=== PATIENT | female | born 1960 | race Caucasian/White ===

== ENCOUNTER 2021-09-01 07:12 | Day surgery (SDC) | payer BC ==
[~2021-09-01] VITALS: Ht 157.5 cm; Wt 68.0 kg
[~2021-09-01 07:12] MED LIST: DORZOLAMIDE-TIM10 ML OPTH; MULTI VITAMIN1 EACH PO; OSTERA TABLET1 EACH PO
--- NOTE | 2021-09-01 08:05 | NUR ---
PATIENT LEFT DAYSURGERY TO IMAGING BY WHEELCHAIR.
--- NOTE | 2021-09-01 10:32 | NUR ---
09/01/21 1032 Patria Barahona 1025-PATIENT ARRIVED TO PACU ON 6L MASK RR EVEN. SR, IVF INFUSING. PATIENT NONAROUSABLE. LEFT BREAST CDI. 1030-PATIENT AROUSING TO VERBAL STIMULI RUBBING NOSE ORIENTED TO PACU REMAINS VERY DROWSY. DENIES PAIN OR NAUSEA. DOZES BACK TO SLEEP. 6L MASK RR EVEN 100%
[2021-09-01] MEDS ORDERED: IBUPROFEN600 MG PO (10:46)
[2021-09-01] MEDS ORDERED: OXYCODON-ACETA1 EAC2 PO (10:46)
[2021-09-01] MEDS ORDERED: ACETAMINOPHEN500 MG PO (10:47)
--- NOTE | 2021-09-01 11:13 | NUR ---
1100: PT BACK TO DS TX RM FROM PACU AWAKE AND ALERT. PT RATES PAIN 2/10 WHEN ASKED AND TOLERABLE. PT DENIES NAUSEA AND ICED WATER IS PROVIDED. PT SPOUSE AT BEDSIDE ON ARRIVAL. DC CRITERIA EXPLAINED, CALL LIGHT WITHIN REACH.
--- NOTE | 2021-09-01 11:45 | NUR ---
PT ALERT, ORIENTED AND SUPPORTED BY HER BETTYE. BOTH FRIENDLY, BUT SOME- WHAT ANXIOUS. HAD GOOD VISIT, DEBRIEFED AND PRAYED WITH BOTH. SPENT TIME WITH BOTH GIVING ENCOURAGEMENT. WILL FOLLOW
--- NOTE | 2021-09-01 12:13 | NUR ---
PT RESTING IN BED WITH EYES CLOSED, RESP EVEN AND UNLABORED. ASSESSMENT DEFERRED AT THIS TIME PER CLINICAL JUDGEMENT, WILL PLAN TO ASSESS ONCE AWAKE. CALL LIGHT WITHIN REACH.
--- NOTE | 2021-09-01 12:25 | NUR ---
PT UP TO BATHROOM WITH AMBIKA JEAN. VSS.
--- NOTE | 2021-09-01 12:36 | NUR ---
PT SPOUSE BACK IN ROOM AT THIS TIME. PT AWAKE AND HAS URGE TO VOID, DOMINGA, RN AND THIS RN ASSIST PT TO SIDE OF BED PRIOR TO STANDING. PT STATES "I DON'T FEEL DIZZY, JUST AIRY FROM ANESTHESIA." PT AMBULATES WITH STEADY GAIT AND IS ABLE TO VOID 600 MLS YELLOW URINE. PT PROVIDED JELLO AND SPOUSE GIVEN APPLE JUICE. CALL LIGHT WITHIN REACH.
--- NOTE | 2021-09-01 13:40 | NUR ---
PATIENT REPORTED FEELING READY TO DISCHARGE HOME. PATIENT STATES PAIN IS 2/10 ON PAIN SCALE, DESCRIBES A BURNING SENSATION. ADMINISTERED MOTRIN PO. REMOVED SALINE LOCK. PATIENT NOW DRESSING SELF. PROVIDED EDUCATION WITH PAIN CONTROL AND DISCUSSED TREATMENT OF PREVENTING CONSTIPATION WHEN TAKING NARCOTICS.
--- NOTE | 2021-09-01 13:50 | NUR ---
PROVIDED DISCHARGE INSTRUCTION TO PATIENT AND IN ROOM, ANSWERED QUESTIONS AND CONCERNS. PROVIDED WHEELCHAIR RIDE OUT TO CAR. PATIENT TRANSFERED WELL INTO VEHICLE. DRESSING AT LEFT BREAST BIOPSY SITE C/D/I.
--- NOTE | 2021-09-03 13:40 | OR ---
[facility] [address] [place], [place] [address] Signed DATE OF OPERATION: 09/01/2021 SURGEON: Talisha Zaldivar MD PREOPERATIVE DIAGNOSIS: Left upper outer quadrant infiltrating ductal carcinoma. POSTOPERATIVE DIAGNOSES: 1. Left upper outer quadrant infiltrating ductal carcinoma. 2. [place] lymph node x3 negative on frozen pathology. PROCEDURES: 1. Injection of methylene blue dye for sentinel lymph node identification. 2. Left deep axillary lymph node biopsy x3. 3. Left partial mastectomy. ANESTHESIA: General LMA, Doug Schroeder CRNA INDICATIONS: This 61-year-old white woman is a patient of Rufus Hinkle and referred for newly diagnosed left breast cancer in the upper outer aspect of the breast. It was confirmed to be infiltrating ductal carcinoma. The patient had not felt a breast mass in advance evaluation and treatment. A mammogram in July 2021 confirmed the suspicious finding and left breast ultrasound was also performed, confirming a hypoechoic mass and irregular borders 13 mm in maximum size in the axilla, at least two pathologic appearing lymph nodes measuring 19 mm. Core biopsy was performed July 30, 2021 confirming infiltrating ductal breast carcinoma overall grade 1 without sign of lymphovascular invasion as well as some in situ component considered low-grade DCIS without necrosis. There were micro calcifications. Family history includes breast cancer in a paternal grandmother. She has been postmenopausal for three years. Clinical examination shows no suspicious axillary adenopathy. In the upper outer aspect on the left side, an area of thickening was noted on clinical examination, which may have represented hematoma from biopsy and on that basis, uncertainty as to the palpable nature of the lesion. After consideration of her options of management, she wishes to pursue with a breast conservation approach to include partial mastectomy, breast radiation therapy and sentinel lymph node biopsies to assess for metastatic disease. Under the consideration of her particulars, specifically the suspicious lymph nodes on Electronically Signed By: TALISHA ZALDIVAR MD 09/03/21 1340 PATIENT NAME: TIM MANZO OPERATIVE REPORT DATE OF : 64 REPORT #: [id number] PHYSICIAN: TALISHA ZALDIVAR MD PCP: RUFUS HINKLE PAC REPORT IS CONFIDENTIAL AND NOT TO BE RELEASED WITHOUT AUTHORIZATION [facility] [address] [place], [place] [address] Signed ultrasound of the axilla, I have recommended sentinel lymph node identification by methylene blue dye alone as there is relatively high probability of axillary dissection based on clinical findings with open incision for sentinel lymph node biopsies anyway. Additionally as availability for localization was not immediate, I have scheduled for needle localization of the primary tumor to assure complete excision. She and her understand the risk of bleeding, infection, cosmetic deformity, certain recommendation of radiation therapy and possible recommendation for systemic chemotherapy depending on the pathologic findings. Understand this, they wished to proceed. FINDINGS: Upon presentation to the radiology department, the lesion was still palpable despite biopsy having been a few weeks ago. On that basis, needle localization was deemed unnecessary. The area was marked by the radiologist for my convenience and clinical examination preoperatively did confirm the thickened area to have persisted and thus not represent persistent hematoma and therefore high likelihood of good and complete excision of the mass. There remained no clinically palpable axillary lymph nodes. Methylene blue dye injection did arborize locally quite a bit; 2 mL were used. Within the axilla, obvious uptake to lymphatics was noted and three relatively large sentinel lymph nodes were excised. Frozen pathology confirmed no evidence of metastatic disease and on that basis, additional dissection was not undertaken. Final pathology is of course pending. The remaining axilla was clinically negative as regards to metastatic disease. The tumor itself was dense and a wide resection was undertaken so as to maintain a clinically and pathologically negative margin. Inferior and medial in the excision site was fibrous tissue consistent with normal breast tissue; if that area proves to be a strongly positive margin, then re-excision will involve by definition a much larger resection than might have been anticipated. Final pathology on the breast is pending. DESCRIPTION OF PROCEDURE: The patient was brought to the operating room, given a general LMA type anesthetic. She was noted to have a somewhat difficult airway. The device was placed successfully without problem. Preoperative antibiotic Ancef was given. Sequential compression device stockings were used and heparin subcutaneously administered. 2 mL of methylene blue dye was injected in the subepithelial space in the upper outer aspect of the left periareolar area. Arborization within lymphatics was noted quite immediately. The palpable lesion was also previously marked by the radiologist and was readily discernible. There is no palpable axillary adenopathy. Electronically Signed By: TALISHA ZALDIVAR MD 09/03/21 1340 PATIENT NAME: TIM MANZO OPERATIVE REPORT DATE OF : 64 REPORT #: [id number] PHYSICIAN: TALISHA ZALDIVAR MD PCP: RUFUS HINKLE PAC REPORT IS CONFIDENTIAL AND NOT TO BE RELEASED WITHOUT AUTHORIZATION [address] [address] Signed The upper torso and arm were prepared with a spray Betadine solution and draped sterilely. A transverse incision was made in the natural skin crease and dissection carried through the subcutaneous tissue. Using blunt dissection with a tonsil clamp ultimately, several deep blue lymphatic channels were identified, which were followed to 3 sentinel lymph nodes, all of them somewhat larger than usual and probably corresponding to the preoperative ultrasound lymph node findings. These were excised and passed for pathology, marked with a suture. Additional dissection showed no obvious additional blue lymph nodes. The remaining axilla was palpably normal. A laparotomy pad was packed into the depths of the wound and attention turned towards the primary tumor. The tumor was easily identified and an incision was made directly over it. Dissection was carried through the dermis with electrocautery. Superior and inferior flaps were developed so as to widely excise the tumor and its surrounding inflammatory process. Wide resection was taken and deep dissection undertaken with a clinically negative margin. Specimen was marked prior to explantation from the wound with a superior and lateral suture. The specimen was passed for permanent pathology. Examination within the parenchyma of the breast showed no sign of residual tumor; inferiorly, fibrous tissue from the excision could be identified, which was considered normal breast tissue and not malignant. Irrigation was undertaken with saline solution and hemostasis assured with electrocautery. The breast wound was closed with interrupted 2-0 Vicryl and running subcuticular 3-0 Vicryl for the skin. By this point, the frozen pathology from Dr. Coleman returned showing three sentinel lymph nodes negative for metastatic disease on frozen pathology. Examination of the axillary wound showed no sign of bleeding or other problems. It was closed with interrupted 2-0 Vicryl in deep layer and running subcuticular 3-0 Vicryl for the skin. Steri-Strips were applied to both incisions and a medium size Acticoat dressing used to cover both of them. She was ultimately extubated and transferred to recovery room in good condition having suffered no complications. Sponge, needle, and instrument counts were reported as correct x3. Talisha Zaldivar MD JM/MODL /[id number] Electronically Signed By: TALISHA ZALDIVAR MD 09/03/21 1340 PATIENT NAME: TIM MANZO OPERATIVE REPORT DATE OF : 64 REPORT #: [id number] PHYSICIAN: TALISHA ZALDIVAR MD PCP: RUFUS HINKLE PAC REPORT IS CONFIDENTIAL AND NOT TO BE RELEASED WITHOUT AUTHORIZATION [address] [address] Signed cc: MD Dr. Rufus Castañeda Copies: ZACKARY STANLEY MD ~ Electronically Signed By: TALISHA ZALDIVAR MD 09/03/21 1340 PATIENT NAME: TIM MANZO OPERATIVE REPORT DATE OF : 64 REPORT #: [id number] PHYSICIAN: TALISHA ZALDIVAR MD PCP: RUFUS HINKLE PAC REPORT IS CONFIDENTIAL AND NOT TO BE RELEASED WITHOUT AUTHORIZATION
--- NOTE | 2021-09-07 13:35 | PATH ---
[facility] [address] [facility] [place] [address] Signed SPECIMEN(S): A SENTINEL LYMPH NODE OF LEFT BREAST X3 SPECIMEN(S): B LEFT UPPER OUTER BREAST SPECIMEN SOURCE: A. SENTINEL LYMPH NODE OF LEFT BREAST X3 B. LEFT UPPER OUTER BREAST [id number] A CLINICAL HISTORY: A. Infiltrating ductal left breast carcinoma. B. Left upper outer breast cancer. Short stitch = superior; long stitch = lateral. Specimen Time to Fixation- 09/01/2021 10:29:00 AM FROZEN SECTION DIAGNOSIS: A. SLN marked by suture x3: - No evidence of malignancy in technology sales representative sections frozen (of each sentinel lymph node). (Dr. Coleman, 10:06 AM, 09/01/2021) Frozen section diagnosis called to Dr. Sanchez at 10:06 AM. FB (under the direct supervision of a pathologist) The Gross Description was prepared using a voice recognition system. The report was reviewed for accuracy; however, sound-alike word errors, addition and/or deletions may occur. If there is any question about this report, please contact Client Services. FINAL PATHOLOGIC DIAGNOSIS: A. [place] lymph nodes, left axilla, excisional biopsy: - No evidence of malignancy in three lymph nodes (0/3). B. Breast, left, upper outer quadrant, lumpectomy: - Invasive ductal carcinoma with the following features: - Tumor site: Upper outer quadrant. - Histologic type: Invasive carcinoma of no special type (ductal). - Histologic grade (Daniela histologic score): - Glandular (acinar)/tubular differentiation: Score 2. - Nuclear pleomorphism: Score 2. - Mitotic rate: Score 1. - Overall grade: I/III (total score 5 of 9). - Tumor size: 19 x 16 x 15 mm. - Ductal carcinoma in situ (DCIS): Present, negative for extensive intraductal component (EIC). - Architectural patterns: Solid and cribriform with comedo PATIENT NAME: GÉNESIS PETERSON PATHOLOGY DATE OF : 64 REPORT #: [id number] PHYSICIAN: IVIS STORM PCP: RUFUS HINKLE PAC REPORT IS CONFIDENTIAL AND NOT TO BE RELEASED WITHOUT AUTHORIZATION [facility] [address] [place], [place] [address] Signed necrosis. - Nuclear grade: Grade 2 (intermediate). - Necrosis: Present, central (expansive "comedo" necrosis). - Lobular carcinoma in situ (LCIS): Present. - Lymphovascular invasion: Not identified. - Microcalcifications: Present in invasive carcinoma, DCIS, and non-neoplastic tissue. - Margin status for invasive carcinoma: All margins negative for invasive carcinoma. - Distance from invasive carcinoma to closest margins: 6 mm (superior margin) and 7 mm (anterior margin). - All other margins: Greater than 10 mm. - Margin status for DCIS: All margins negative for DCIS. - Distance of DCIS from closest margin: 2 mm (posterior margin). - All other margins: Greater than 5 mm. - Regional lymph nodes: All regional lymph nodes negative for tumor. - Total number of lymph nodes examined: 3. - Number of sentinel nodes examined: 3. - Additional pathologic findings: Columnar cell change, fibrocystic changes. - Breast biomarker studies: Please refer to previously performed testing ([id number], 07/30/2021), interpreted as ER positive, MD positive, and HER2 negative for amplification by FISH. - Pathologic stage classification (pTNM, AJCC 8th edition): pT1c (sn)pN0. COMMENT: As part of [employer], this case was reviewed by another member of our pathology staff. NAL:cml:C1NR MICROSCOPIC EXAMINATION: Histologic sections of all submitted blocks are examined by light microscopy. These findings, together with the gross examination, support the pathologic diagnosis. Elementary Spanish Teacher sections of the sentinel lymph nodes (A1, A3, A4) were examined with pancytokeratin immunohistochemical stains (with appropriately staining controls) and confirm the absence of tumor cells. E-cadherin immunohistochemical stains (with appropriately staining controls B1, PATIENT NAME: SEGUN PETERSONZuhair ANDUJAR PATHOLOGY DATE OF : 64 REPORT #: [id number] PHYSICIAN: IVIS STORM PCP: RUFUS IHNKLE PAC REPORT IS CONFIDENTIAL AND NOT TO BE RELEASED WITHOUT AUTHORIZATION [address] [address] Signed B10) confirm the presence of lobular neoplasia demonstrating loss of membranous e-cadherin staining. A [facility] immunohistochemical stain (with appropriately staining controls) confirm the absence of invasive carcinoma within that one stained section. GROSS DESCRIPTION: Two specimens are received in two containers, labeled "Génesis Peterson." A. The specimen, labeled "Génesis Peterson," and designated on the requisition "SLN's marked by suture x3," is received fresh for frozen section diagnosis and consists of two pieces of fat, 9.0 x 4.1 x 1.5 cm in aggregate. Three possible SLN's are identified, marked by sutures. SLN #1 = 2.2 x 1.8 x 1.3 cm, quadrisected. SLN #2 = 1.5 x 1.5 x 0.9 cm, fragmented, trisected. SLN #3 = 0.7 x 0.5 x 0.6 cm, bisected. A portion of the lymph nodes are submitted for frozen section resubmitted as received. The remaining lymph nodes are submitted for histologic examination. No additional lymph nodes were identified in the remainder of the fibroadipose tissue. Elementary Spanish Teacher sections are submitted in seven cassettes. Cassette summary: (A1-A2) SLN #1, frozen section (A3) SLN #2, frozen section (A4) SLN #3, frozen section (A5) SLN #1, remainder (A6) SLN #2, remainder (A7) SLN #3, remainder. B. The specimen, labeled "Génesis Peterson," and designated on the requisition "left upper outer breast cancer short stitch = superior long stitch = lateral," is received in formalin and consists of a 56 gram oriented portion of yellow-acosta fibroadipose tissue that is 7.4 x 5.5 x 4.9 cm. A short suture is present and identifies the superior margin; a long suture identifies the lateral margin. The specimen is inked as follows: superior - blue; inferior - green; medial - red; lateral - orange; anterior - yellow; and posterior - black. The specimen is serially sectioned from medial to lateral into 14 slices revealing a 1.9 x 1.6 x 1.5 cm pink-white firm, ill-defined mass present in slices 5-8. The mass is 0.6 cm from the anterior soft tissue margin, 1.6 cm from the posterior soft tissue margin, 0.7 cm from the superior soft tissue margin, 1.3 cm from the inferior soft tissue margin, 2.3 cm from the medial soft tissue margin, and 3.7 cm from the lateral soft tissue margin. PATIENT NAME: GÉNESIS PETERSON PATHOLOGY DATE OF : 64 REPORT #: [id number] PHYSICIAN: IVIS STORM PCP: RUFUS HINKLE PAC REPORT IS CONFIDENTIAL AND NOT TO BE RELEASED WITHOUT AUTHORIZATION [facility] [address] [place], [place] [address] Signed Approximately 95% of the remaining specimen is a yellow-acosta greasy adipose tissue and 5% is a white-acosta rubbery fibrous tissue. Elementary Spanish Teacher sections are submitted in nine cassettes. Cassette summary: (B1-B3) slice six with mass (slice six is entirely submitted) (B4-B5) mass to closest anterior and superior soft tissue resection margins, perpendicular, from slices seven and eight (B6) fibroadipose tissue medial to mass, slice three (B7) fibroadipose tissue lateral to mass, slice 10 (B8) medial soft tissue resection margin, perpendicular, slice one, technology sales representative sections (B9) lateral soft tissue resection margin, perpendicular, slice 14, technology sales representative sections. Additional tissue submitted in cassettes B10-B12, per Dr. Coleman's request. FB (B10) Superior and posterior soft tissue resection margins from slices four and five (B11) Superior and posterior soft tissue resection margins from slice seven (B12) Superior and posterior soft tissue resection margins from slice eight and nine. Cold ischemia time: 37 minutes Approximate Formalin time: 12-24 hours. PERFORMING LABORATORY: The technical component was performed by [facility], [address] [place] [id number] ([employer] Software: Tiffanie Erickson MD; CLIA# [id number]). Frozen section performed at [facility], [address] [place], [place] [address] (CLIA# [id number]). Professional interpretation was performed by [facility], [facility], [address] [address] (CLIA# [id number]). Diagnostician: Marissa Coleman MD Pathologist Electronically Signed 09/07/2021 Copies: ~ PATIENT NAME: GÉNESIS PETERSON PATHOLOGY DATE OF : 64 REPORT #: [id number] PHYSICIAN: IVIS PATHOLOGY PCP: RUFUS HINKLE PAC REPORT IS CONFIDENTIAL AND NOT TO BE RELEASED WITHOUT AUTHORIZATION
== END 2021-09-01 13:50 | disposition home or self-care (01) ==
LOC: DS 07:12 → EDSTATUS 08:00 → US 08:00 → DS 13:50
PROVIDERS: ATTEND Surgery
PROC: 07B60ZX Excision of Left Axillary Lymphatic, Open Approach, Diagnostic (ICD-10-PCS; principal; 2021-09-01 09:00)
DX: C50.412 Malignant neoplasm of upper-outer quadrant of left female breast (principal); Z78.0 Asymptomatic menopausal state; Z88.5 Allergy status to narcotic agent
CPT/HCPCS: 00404; 76642; A9270; J0131; J0690; J1100; J1644; J1885; J2001; J2405; J2704; J3010; J7121; Q9968

== ENCOUNTER 2024-01-02 07:27 | Day surgery (SDC) | payer BC ==
[~2024-01-02] VITALS: Ht 157.5 cm; Wt 64.5 kg
[~2024-01-02 07:27] MED LIST changes: +ACETAMINOPHEN500 MG PO; +ADULT ASPIRIN R81 MG PO; +ANASTROZOLE1 MG PO; +DRAMAMINE25 M1 PO; +IBLOOD GLUCOSE TEST STRIP 1 EA TEST VI PRN; +IBUPROFEN600 MG PO; +LACTATED RINGER'S 1,000 ML IV SCH; +LIDOCAINE HCL 1% 5 ML SDV INJ ONE; +MIDAZOLAM HCL 5 MG/5 ML VIAL IV PRN; +OXYCODON-ACETA1 EAC2 PO; +fentaNYL citrate 100 MCG/2 ML VIAL IV PRN
[2024-01-02 07:45] VITALS: BP 147/82
[2024-01-02] MEDS ORDERED: fentaNYL citrate 100 MCG/2 ML VIAL ONE (08:28)
[2024-01-02] MEDS ORDERED: MIDAZOLAM HCL 5 MG/5 ML VIAL ONE (08:28)
--- NOTE | 2024-01-02 09:16 | NUR ---
01/02/24 0916 Delaney Allen 0912-PT TO PACU IN LL POSITION. EYES CLOSED. RESPONDS TO VERBAL STIMULI, DENIES PAIN AND REMAINS DROWSY. PT ASKING QUESTIONS ABOUT PROCEDURE. BREATHING EASY AND UNLABORED. SPO2 >95% ON 3 L O2 VIA NC. PT ENCOURAGED TO PASS GAS.
[2024-01-02 10:32] VITALS: BP 126/76
--- NOTE | 2024-01-02 19:29 | OR ---
[facility] [address] [place], [place] [address] Signed DATE OF OPERATION: 01/02/2024 SURGEON: Talisha Zaldivar MD PREOPERATIVE DIAGNOSIS: Colon screening. POSTOPERATIVE DIAGNOSIS: Polyps x2, sigmoid and rectum. PROCEDURE: Total colonoscopy to cecum with cold morcellation polypectomy x2. ANESTHESIA: Intravenous sedation, fentanyl 100 mcg and Versed 5 mg. INDICATIONS FOR THE PROCEDURE: This 63-year-old white woman is a patient of KATIA Cruz. She last underwent colonoscopy in 2012, which was negative. She has no family history of colon cancer and no symptoms of bleeding, diarrhea, or constipation. She does have history of breast cancer, having undergone treatment by [place] in 2021 and remains well in that regard. She is admitted at this time to undergo screening colonoscopy. She understands the risk of bleeding, infection, and perforation. FINDINGS: The prep was good. Complete colonoscopy was undertaken. The cecum without question. She had two small polyps, one in the sigmoid and the other in the rectum. Both were excised with cold morcellation technique. DESCRIPTION OF PROCEDURE: The patient was brought to the endoscopy suite and placed in lateral decubitus position given intravenous sedation to the point of slurred speech and nystagmus with full cardiopulmonary monitoring. Digital rectal examination was normal. An Olympus video colonoscope was passed into the rectum and manipulated throughout the colon noting a small polyp of the sigmoid, this was excised and passed for Pathology. The scope was then advanced beyond this ultimately to the cecum. The ileocecal valve and appendiceal orifice were normal. Scope was carefully withdrawn, examination throughout showed no sign of abnormality until the sigmoid where the previous polypectomy site was ascertained. Further withdrawal showed a small polyp of the Electronically Signed By: TALISHA ZALDIVAR MD 01/02/24 1929 PATIENT NAME: TIM MANZO OPERATIVE REPORT DATE OF : 64 REPORT #: [id number] PHYSICIAN: TALISHA ZALDIVAR MD PCP: RUFUS HINKLE PAC REPORT IS CONFIDENTIAL AND NOT TO BE RELEASED WITHOUT AUTHORIZATION [facility] [address] [place], [place] [address] Signed rectum, this was excised with cold morcellation technique as well. Retroflexed view was normal. Scope was removed. The patient was taken to the recovery room in good condition. CONCLUDING DIAGNOSIS: Polyps x2. PLAN: Recommend repeat colonoscopy in 3 years or sooner if symptoms should occur. She will return to the ongoing care of KATIA Cruz. MD TRACI Díaz/NATASHA /[id number] cc: Rufus Hinkle PA-C Copies: ~ Electronically Signed By: TALISHA ZALDIVAR MD 01/02/24 1929 PATIENT NAME: TIM MANZO OPERATIVE REPORT DATE OF : 64 REPORT #: [id number] PHYSICIAN: TALISHA ZALDIVAR MD PCP: RUFUS HINKLE PAC REPORT IS CONFIDENTIAL AND NOT TO BE RELEASED WITHOUT AUTHORIZATION
--- NOTE | 2024-01-05 14:26 | PATH ---
[facility] [address] [facility] [place], [place] [address] Signed SPECIMEN(S): A SIGMOID POLYP SPECIMEN(S): B RECTAL POLYP SPECIMEN SOURCE: A. SIGMOID POLYP B. RECTAL POLYP CLINICAL HISTORY: Screening. FINAL PATHOLOGIC DIAGNOSIS: A. Colon, sigmoid, polyp, biopsy: - Multiple fragments of tubular adenoma. B. Rectum, polyp,, biopsy: - Tubular adenoma. COMMENT: There is no evidence of high grade dysplasia or malignancy. TWK MICROSCOPIC EXAMINATION: Histologic sections of all submitted blocks are examined by light microscopy. These findings, together with the gross examination, support the pathologic diagnosis. GROSS DESCRIPTION: A. The specimen, labeled and designated "Peterson, D, sigmoid polyp," is received in formalin and consists of two acosta soft tissue fragments, ranging from 0.3-0.5 cm. Entirely submitted in (A1). B. The specimen, labeled and designated "Peterson, D, rectal polyp," is received in formalin and consists of one acosta soft tissue fragment, 0.4 cm. Entirely submitted in (B1). HS (under the direct supervision of a pathologist) The Gross Description was prepared using a voice recognition system. The report was reviewed for accuracy; however, sound-alike word errors, addition and/or deletions may occur. If there is any question about this report, please contact Client Services. ADDITIONAL NOTES: Immunohistochemical and/or in situ hybridization studies if performed in this case included appropriate positive controls that reacted as expected. This PATIENT NAME: TIM PETERSON PATHOLOGY DATE OF : 64 REPORT #: [id number] PHYSICIAN: IVIS STORM PCP: RUFUS HINKLE PAC REPORT IS CONFIDENTIAL AND NOT TO BE RELEASED WITHOUT AUTHORIZATION [facility] [address] [place], [place] [address] Signed test was developed and its performance characteristics determined by [facility]. It has not been cleared or approved by the U.S. Food and Drug Administration. The FDA has determined that such clearance or approval is not necessary. This test is used for clinical purposes. It should not be regarded as investigational or for research. [facility] is certified under the Clinical Laboratory Improvement Amendments of 1988 (CLIA) as qualified to perform high complexity clinical laboratory testing. PERFORMING LABORATORY: Technical component was performed by [facility], [address] [place] [id number] (CLIA# [id number]). Professional interpretation was performed by [facility], [address] [place] [address] (CLIA#:[id number]). Diagnostician: Jerrod Farah MD Pathologist Electronically Signed 01/05/2024 Copies: ~ PATIENT NAME: TIM PETERSON PATHOLOGY DATE OF : 64 REPORT #: [id number] PHYSICIAN: IVIS PATHOLOGY PCP: RUFUS HINKLE PAC REPORT IS CONFIDENTIAL AND NOT TO BE RELEASED WITHOUT AUTHORIZATION
== END 2024-01-02 10:32 | disposition home or self-care (01) ==
LOC: OPS 07:27 → DS 07:27 → OPS 08:15 → DS 08:15 → OPS 10:32
PROVIDERS: ATTEND Surgery
PROC: 0DBN8ZZ Excision of Sigmoid Colon, Via Natural or Artificial Opening Endoscopic (ICD-10-PCS; 2024-01-02)
PROC: 0DBP8ZZ Excision of Rectum, Via Natural or Artificial Opening Endoscopic (ICD-10-PCS; principal; 2024-01-02 08:15)
DX: Z12.11 Encounter for screening for malignant neoplasm of colon (principal); D12.5 Benign neoplasm of sigmoid colon; D12.8 Benign neoplasm of rectum; Z78.0 Asymptomatic menopausal state; Z88.5 Allergy status to narcotic agent
CPT/HCPCS: 99153; G0500; J2250; J3010; J7121